=== PATIENT | female | born 1985 | race Caucasian/White ===

== ENCOUNTER 2017-01-07 08:51 | Emergency (ER) | payer BC ==
[~2017-01-07] VITALS: Ht 152.4 cm; Wt 83.9 kg
[~2017-01-07 08:51] MED LIST: ACETAMIN W/CODE1 TAB PO; CIPRODEX 0.3%-7.5 ML OT; CLINDAMYCIN HC300 MG PO; HYDROCODONE BIT1 T11 PO; IMPLANON68 MG ID; MOTRIN800 MG PO; NAPROSYN500 MG PO; NKHM; PEN-VK500 MG PO; TOPAMAX50 MG PO; TRAMADOL HCL50 MG PO; ULTRAM50 MG PO; ZITHROMAX250 MG PO; ZOFRAN ODT4 MG SL; ZYRTEC10 MG PO
== END 2017-01-07 11:42 | disposition home or self-care (01) ==
LOC: ED 08:51
DX: S93.401A Sprain of unspecified ligament of right ankle, initial encounter (principal); F17.200 Nicotine dependence, unspecified, uncomplicated; Z98.890 Other specified postprocedural states; Z79.899 Other long term (current) drug therapy; Z88.1 Allergy status to other antibiotic agents; X58.XXXA Exposure to other specified factors, initial encounter; Y93.66 Activity, soccer; Y92.89 Other specified places as the place of occurrence of the external cause; Y99.9 Unspecified external cause status

== ENCOUNTER 2019-06-04 19:34 | Emergency (ER) | payer BC ==
[~2019-06-04] VITALS: Ht 154.9 cm; Wt 81.6 kg
[~2019-06-04 19:34] MED LIST changes: +BACTROBAN CREAM15 GM NAS; +SEPTDS PO
== END 2019-06-04 20:44 | disposition home or self-care (01) ==
LOC: ED 19:34
DX: S93.401A Sprain of unspecified ligament of right ankle, initial encounter (principal); Z88.1 Allergy status to other antibiotic agents; X50.1XXA Overexertion from prolonged static or awkward postures, initial encounter; Y93.89 Activity, other specified; Y92.89 Other specified places as the place of occurrence of the external cause; Y99.8 Other external cause status

== ENCOUNTER 2019-12-06 17:12 | Emergency (ER) | payer BC ==
[~2019-12-06] VITALS: Ht 154.9 cm; Wt 86.2 kg
[2019-12-06] MEDS ORDERED: ROBITUSSIN DM 105 ML PO (18:34)
[2019-12-06] MEDS ORDERED: PREDNISONE20 M1 PO (18:34)
== END 2019-12-06 18:45 | disposition home or self-care (01) ==
LOC: ED 17:12
DX: J40 Bronchitis, not specified as acute or chronic (principal); Z88.1 Allergy status to other antibiotic agents